=== PATIENT | female | born 1950 | race Caucasian/White ===

== ENCOUNTER → 2017-12-19 | Outpatient (CLI) | payer MEDICARE, OTHER | LOC: M.RAD 14:51 | DX: M16.0 Bilateral primary osteoarthritis of hip (principal) ==

== ENCOUNTER → 2020-05-04 | Outpatient (CLI) | payer MEDICARE, OTHER | LOC: M.CT 16:00 | PROVIDERS: ATTEND Registered Nurse Diabetes Educator | DX: K57.30 Diverticulosis of large intestine without perforation or abscess without bleeding (principal); N30.00 Acute cystitis without hematuria; R39.198 Other difficulties with micturition; R10.9 Unspecified abdominal pain; R11.0 Nausea; R10.2 Pelvic and perineal pain; M16.12 Unilateral primary osteoarthritis, left hip; N83.202 Unspecified ovarian cyst, left side ==

== ENCOUNTER → 2020-06-01 | Outpatient (CLI) | payer MEDICARE, OTHER | LOC: M.ULTRA 05-10 08:44 | PROVIDERS: ATTEND Registered Nurse Diabetes Educator | DX: M16.11 Unilateral primary osteoarthritis, right hip (principal); M25.851 Other specified joint disorders, right hip; M25.852 Other specified joint disorders, left hip ==